=== PATIENT | male | born 1975 | race African-American/Black ===

== ENCOUNTER 2016-08-12 17:56 | Emergency (ER) | payer OTHER ==
[~2016-08-12] VITALS: Wt 70.0 kg
[~2016-08-12 17:56] MED LIST: HC30CR25 TOP; IBUP-1542 PO; LORA-186 PO; METR500T PO; NEOM28OI TP
[2016-08-12] MEDS ORDERED: PERM1LIQ MC (18:40)
--- NOTE | 2016-08-12 19:08 | ERD ---
ER Documentation Chief Complaint Date/Time DATE: 08/12/16 TIME: 19:06 Chief Complaint here for lice clearance. no signs of itching per pt HPI Patient is a 40-year-old male who presents to the ED for "lice clearance." He was sent here from [facility] to make sure that he does not have lice as one of the other members had lice. Denies any symptoms today. Denies itchiness or pain. No complaints today ROS All systems reviewed and are negative except as per history of present illness. Medications Home Meds Active Scripts Permethrin (Permethrin) 1 Gm Liquid, 1 GM MC BID for 7 Days Prov:LENNY ESQUIVEL PA-C 08/12/16 Metronidazole* (Flagyl*) 500 Mg Tablet, 500 MG PO TID for 7 Days, TAB Prov:JOSH KNUTSON PA-C 07/09/16 Loratadine* (Claritin*) 10 Mg Tablet, 10 MG PO DAILY, #30 TAB Prov:JOSH KNUTSON PA-C 07/09/16 Ibuprofen* (Ibuprofen*) 600 Mg Tablet, 600 MG PO Q6H, #30 TAB Prov:JOSH KNUTSON PA-C 07/09/16 Hydrocortisone* Topical (Hydrocortisone* Topical) 2.5%-28.3 Gm Cream..g., 1 APPLIC TOP TID, #1 TUB Applied to rectal area Prov:BEV PATRICIO MD 06/01/16 Neomycin Ellis/Bacitrac Zn/Poly (Triple Antibiotic Ointment) 28 Gm Oint...g., 28 GM TP TID for 7 Days Prov:BEV PATRICIO MD 06/01/16 Allergies Allergies: Coded Allergies: No Known Allergy (Unverified , 06/01/16) PMhx/Soc History of Surgery: No Anesthesia Reaction: No Hx Neurological Disorder: No Hx Respiratory Disorders: No Hx Cardiac Disorders: No Hx Psychiatric Problems: No Hx Miscellaneous Medical Probl: No Hx Alcohol Use: Yes Hx Substance Use: No Hx Tobacco Use: Yes Physical Exam Vitals Vital Signs Date Time Temp Pulse Resp B/P Pulse Ox O2 Delivery O2 Flow Rate FiO2 08/12/16 18:35 985.1 89 20 125/73 98 Physical Exam GENERAL: Well-developed, well-nourished male. Appears in no acute distress. HEAD: Normocephalic, atraumatic. EYES: Pupils are equally reactive bilaterally. EOMs grossly intact. No conjunctival erythema. LUNG: Clear to auscultation bilaterally. No rhonchi, wheezing, rales or coarse breath sounds. HEART: Regular rate and rhythm. No murmurs, rubs or gallops. BACK: No midline tenderness. SKIN: Normal color. Warm and dry. No rashes or lesions. Capillary refill < 2 seconds Procedures/MDM ER COURSE: I kept the patient and/or family informed of laboratory and diagnostic imaging results throughout the emergency room course MEDICAL DECISION MAKING: This is a 40-year-old male who presents with lice clearance. Vital signs were reviewed. Patient is afebrile. Patient is not hypoxic. Patient is nontoxic or ill-appearing. Patient does not have lice today. Low suspicion for necrotizing fasciitis, SJS, toxic epidermal necrolysis, Kawasaki, erythema multiforme, gangrene, scarlet fever, meningococcemia, sepsis, anaphylaxis. DISCHARGE: At this time, patient is stable for discharge and outpatient management with no new complaints during the ER course. Patient was sent home with permethrin. Patient will be discharged home with instructions to recheck for new or worsening symptoms such as fever, nausea, weakness, LOC and to follow up with primary care in the next 1-2 days. Patient was advised to return to the ER for any new or worsening symptoms. Plan was discussed and patient and/or family understands and agrees. Home instructions were given. Patient is a 40-year-old male who presents to the ED for "lice clearance." He was sent here from [facility] to make sure that he does not have lice as one of the other members had lice. Denies any symptoms today. Denies itchiness or pain. No complaints today Departure Diagnosis: Primary Impression: Screening for head lice Condition: Stable Patient Instructions: Head Lice Additional Instructions: Call your primary care doctor TOMORROW for an appointment during the next 1-2 days.See the doctor sooner or return here if your condition worsens before your appointment time. LENNY ESQUIVEL PA-C Aug 12, 2016 19:08
== END 2016-08-12 18:44 | disposition home or self-care (01) ==
LOC: E/R 17:56
DX: Z13.89 Encounter for screening for other disorder (principal); Z87.891 Personal history of nicotine dependence
CPT/HCPCS: 99283

== ENCOUNTER 2016-11-05 03:43 | Emergency (ER) | payer OTHER ==
[~2016-11-05] VITALS: Ht 175.3 cm; Wt 63.6 kg
[~2016-11-05 03:43] MED LIST changes: +PERM1LIQ MC
[2016-11-05 03:52] VITALS: Ht 175.3 cm; Wt 63.6 kg
--- NOTE | 2016-11-05 04:11 | ERA ---
ER Documentation Chief Complaint Date/Time DATE: 11/05/16 TIME: 04:10 Chief Complaint PT WANTS MORE PSYCH MEDS TO OD. HEARING VOICES HPI Is a 32-year-old male wants to overdose because he is hearing voices telling him to kill himself. Denies any fevers or chills. Denies homicidal ideation. Denies any current complaints. ROS All systems reviewed and are negative except as per history of present illness. Medications Home Meds Active Scripts Permethrin (Permethrin) 1 Gm Liquid, 1 GM MC BID for 7 Days Prov:LENNY ESQUIVEL PA-C 08/12/16 Metronidazole* (Flagyl*) 500 Mg Tablet, 500 MG PO TID for 7 Days, TAB Prov:JOSH KNUTSON PA-C 07/09/16 Loratadine* (Claritin*) 10 Mg Tablet, 10 MG PO DAILY, #30 TAB Prov:JOSH KNUTSON PA-C 07/09/16 Ibuprofen* (Ibuprofen*) 600 Mg Tablet, 600 MG PO Q6H, #30 TAB Prov:JOSH KNUTSON PA-C 07/09/16 Hydrocortisone* Topical (Hydrocortisone* Topical) 2.5%-28.3 Gm Cream..g., 1 APPLIC TOP TID, #1 TUB Applied to rectal area Prov:BEV PATRICIO MD 06/01/16 Neomycin Ellis/Bacitrac Zn/Poly (Triple Antibiotic Ointment) 28 Gm Oint...g., 28 GM TP TID for 7 Days Prov:BEV PATRICIO MD 06/01/16 Allergies Allergies: Coded Allergies: No Known Allergy (Unverified , 06/01/16) PMhx/Soc History of Surgery: No Anesthesia Reaction: No Hx Neurological Disorder: No Hx Respiratory Disorders: No Hx Cardiac Disorders: No Hx Psychiatric Problems: No Hx Miscellaneous Medical Probl: No Hx Alcohol Use: Yes Hx Substance Use: No Hx Tobacco Use: Yes Smoking Status: Current every day smoker Physical Exam Vitals Vital Signs Date Time Temp Pulse Resp B/P Pulse Ox O2 Delivery O2 Flow Rate FiO2 11/05/16 03:52 98.4 86 18 136/97 100 Physical Exam Const: [] Head: Atraumatic Eyes: Normal Conjunctiva ENT: Normal External Ears, Nose and Mouth. Neck: Full range of motion..~ No meningismus. Resp: Clear to auscultation bilaterally Cardio: Regular rate and rhythm, no murmurs Abd: Soft, non tender, non distended. Normal bowel sounds Skin: No petechiae or rashes Back: No midline or flank tenderness Ext: No cyanosis, or edema Neur: Awake and alert Psych: Normal Mood and Affect Procedures/MDM Patient's behavioral symptoms have stabilized while in the department. Patient is medically cleared and appropriate for psychiatric evaluation and work up. No e/o neurologic, toxic, infectious, or metabolic cause. Departure Diagnosis: Primary Impression: Suicidal ideation Condition: Stable SHAYNE BURGOS Nov 05, 2016 04:11
[2016-11-05 04:24] LABS: ADD SCAN DIFF NO
[2016-11-05 04:34] LABS: ADD UMIC YES; URINE BILIRUBIN (Dip) NEGATIVE (NEGATIVE); URINE BLOOD (Dip) TRACE (NEGATIVE); URINE COLOR LT. YELLOW (YELLOW); URINE GLUCOSE (Dip) NEGATIVE (NEGATIVE); URINE KETONES (Dip) 15 (NEGATIVE); URINE LEUKOCYTE ESTERASE (Dip) NEGATIVE (NEGATIVE); URINE NITRITE (Dip) NEGATIVE (NEGATIVE); URINE TOTAL PROTEIN (Dip) TRACE (NEGATIVE); URINE UROBILINOGEN (Dip) 0.2 E.U./dL (0.1-1.0)
[2016-11-05 04:35] LABS: BASOPHILS % 0.3 % (0.0-2.0); EOSINOPHILS # 0.1 10^3/ul (0.0-0.5); EOSINOPHILS % 2.1 % (0.0-7.0); HEMATOCRIT 46.5 % (42.0-52.0); HEMOGLOBIN 15.6 g/dl (14.0-18.0); LYMPHOCYTES # 2.5 10^3/ul (0.8-2.9); LYMPHOCYTES % 38.1 % (15.0-51.0); MEAN CORPUSCULAR HEMOGLOBIN 31.8 pg (29.0-33.0); MEAN CORPUSCULAR HGB CONC 33.5 g/dl (32.0-37.0); MEAN CORPUSCULAR VOLUME 94.9 fl (82.0-101.0); MONOCYTE # 0.6 10^3/ul (0.3-0.9); MONOCYTES % 9.3 % (0.0-11.0); NEUTROPHIL # 3.3 10^3/ul (1.6-7.5); NEUTROPHILS % 49.9 % (39.0-77.0); PLATELET COUNT 281 10^3/UL (140-415); WHITE BLOOD COUNT 6.7 10^3/ul (4.8-10.8)
[2016-11-05 04:37] LABS: CHLORIDE 99 mmol/L (97-110)
[2016-11-05 04:38] LABS: POTASSIUM 3.9 mmol/L (3.5-5.1); SODIUM 138 mmol/L (135-144)
[2016-11-05 04:40] LABS: ALANINE AMINOTRANSFERASE 29 IU/L (13-69); ALBUMIN/GLOBULIN RATIO 1.35; ALKALINE PHOSPHATASE 98 IU/L (42-121); ANION GAP 18 (8-16); ASPARTATE AMINO TRANSFERASE 23 IU/L (15-46); BILIRUBIN,INDIRECT 0.7 mg/dl (0-1.1); BILIRUBIN,TOTAL 0.7 mg/dl (0.2-1.3); BLOOD UREA NITROGEN 13 mg/dl (7-20); CALCIUM 9.8 mg/dl (8.4-10.2); CARBON DIOXIDE 25 mmol/L (21-31); CREATININE 0.89 mg/dl (0.61-1.24); GLUCOSE 153 mg/dl (70-220); TOTAL PROTEIN 8.7 g/dl (6.1-8.1)
[2016-11-05 04:52] LABS: URINE RBCS 0-2 /HPF (0)
[2016-11-05 04:53] LABS: BACTERIA,URINE MODERATE; MUCUS,URINE FEW
[2016-11-05 04:53] LABS: ACETAMINOPHEN < 10.0 ug/ml (10.0-30.0); ETHANOL < 10.0 mg/dl; SALICYLATE < 1.0 mg/dl (5.0-30.0)
[2016-11-05 04:54] LABS: BARBITURATES Negative (NEGATIVE); BENZODIAZEPINES Negative (NEGATIVE); CANNABINOIDS Negative (NEGATIVE); COCAINE Negative (NEGATIVE); OPIATES Negative (NEGATIVE)
--- NOTE | 2016-11-05 05:31 | PSY ---
Date/Time of Note Date/Time of Note DATE: 11/05/16 TIME: 05:25 Psychiatric Subjective Eval Consent Pt consented to telemedicine: Yes Subjective Evaluation Patient location: emergency Chief Complaint: PT WANTS MORE PSYCH MEDS TO OD. HEARING VOICES Reason for consult: suicidal History of present illness patient is a 40 yo male homeless with PPH of depression who came to the ER due to feelign suicidal for days, he wants to cut himself, he has attempted in the , he was admitted about 5 months ago, he has been hearing voices telling him to hurt himself and he has been using methamphetamine, he is very paranoid and anxious during the interview, he has been feeling depressed, hopeless and helpless for months due to homelessness. denies any HI Past psychiatric history suicidal attempt in the past Hospitalization: yes Family History denies Medical history Problems Medical Problems: (1) Breast pain Status: Acute (2) Exposure to trichomonas Status: Acute (3) Exposure to trichomonas Status: Acute (4) Pharyngitis Status: Acute (5) Pharyngitis Status: Acute (6) Rectal pain Status: Acute (7) Screening for head lice Status: Acute (8) Suicidal ideation Status: Acute Allergies: Coded Allergies: No Known Allergy (Unverified , 06/01/16) Substance Abuse Substance abuse history: Yes Prior substance abuse treatmen: Yes Social History Marital status: single Level of education: hs Occupation/Alf: hs Psychiatric Objective Eval Review of Systems: Review of Systems: Not Applicable Physical Examination: Physical Examination: Applicable Sleep: Insomnia Appetite: Decreased Energy: Decreased Interest: Decreased Mental Status Examination: Appearance: Disheveled Eye Contact: Good Psychomotor Activity: Slow Behavior: Guarded Speech: Clear AFFECT: Depressed Mood: Depressed, Anxious Though Process: Linear, Loose Thought Content: Delusions, Hallucinations Suicidal: Yes Homicidal: No On 72 hour hold: No Orientation: x2 Cognition: Alert Insight: Impared Judgement: Impared Attention Span: Distractible Laboratory Results Laboratory Tests Test 11/05/16 03:50 11/05/16 04:10 Urine Color LT. YELLOW Urine Clarity CLEAR Urine pH 5.5 Urine Specific [place] 1.020 Urine Ketones 15 Urine Nitrite NEGATIVE Urine Bilirubin NEGATIVE Urine Urobilinogen 0.2 E.U./dL Urine Leukocyte Esterase NEGATIVE Urine Microscopic RBC 0-2/HPF Urine Microscopic WBC 0-2/HPF Urine Bacteria MODERATE Urine Mucus FEW Urine Hemoglobin TRACE Urine Glucose NEGATIVE% Urine Total Protein TRACE Urine Opiates Screen Negative Urine Barbiturates Negative Urine Amphetamines Screen Negative Urine Benzodiazepines Screen Negative Urine Cocaine Screen Negative Urine Cannabinoids Negative White Blood Count 6.710^3/ul Red Blood Count 4.9010^6/ul Hemoglobin 15.6g/dl Hematocrit 46.5% Mean Corpuscular Volume 94.9fl Mean Corpuscular Hemoglobin 31.8pg Mean Corpuscular Hemoglobin Concent 33.5g/dl Red Cell Distribution Width 12.0% Platelet Count 70072^3/UL Mean Platelet Volume 10.0fl Neutrophils % 49.9% Lymphocytes % 38.1% Monocytes % 9.3% Eosinophils % 2.1% Basophils % 0.3% Nucleated Red Blood Cells % 0.0/100WBC Neutrophils # 3.310^3/ul Lymphocytes # 2.510^3/ul Monocytes # 0.610^3/ul Eosinophils # 0.110^3/ul Basophils # 0.010^3/ul Nucleated Red Blood Cells # 0.010^3/ul Sodium Level 138mmol/L Potassium Level 3.9mmol/L Chloride Level 99mmol/L Carbon Dioxide Level 25mmol/L Anion Gap 18 Blood Urea Nitrogen 13mg/dl Creatinine 0.89mg/dl Glucose Level 153mg/dl Calcium Level 9.8mg/dl Total Bilirubin 0.7mg/dl Direct Bilirubin 0.00mg/dl Indirect Bilirubin 0.7mg/dl Aspartate Amino Transf (AST/SGOT) 23IU/L Alanine Aminotransferase (ALT/SGPT) 29IU/L Alkaline Phosphatase 98IU/L Total Protein 8.7g/dl Albumin 5.0g/dl Globulin 3.70g/dl Albumin/Globulin Ratio 1.35 Salicylates Level < 1.0mg/dl Acetaminophen Level < 10.0ug/ml Ethyl Alcohol Level < 10.0mg/dl Assessment and Plan Assessment/Diagnosis [place] I: psychosis nos [place] II: deferred [place] III: as per record [place] IV: homeless [place] V: gaf 25 Recommendation/Plan Follow-up/Disposition Please admit patient on involuntary status due to Danger to self, In my opinion, patient currently MEETS criterion for inpatient care and CANNOT be safely treated at a lower level of care today as evidenced by the following risk factors: Current and Recent Suicidal Ideation Previous suicide attempt and severe self-destructive behavior Intense feelings of hopelessness and lack of future orientation. Significant recent DETERIORATION in function, behavior and thought processes Command hallucinations with violent content Substance ABUSE in conjunction with another psychiatric disorder Non-Compliance with Outpatient Treatment Patient has failed outpatient and requires further inpatient assessment Medication changes require observation unavailable at a lower level of care. [id number] Recommendation: IRMA Conte MD Nov 05, 2016 05:31
[2016-11-05 13:09] VITALS: BP 120/69; PULSE 83; RESP 18; TEMP 98.8
== END 2016-11-05 13:10 ==
LOC: E/R 03:43
DX: R44.0 Auditory hallucinations (principal); R45.851 Suicidal ideations; F17.210 Nicotine dependence, cigarettes, uncomplicated; R40.2142 Coma scale, eyes open, spontaneous, at arrival to emergency department; R40.2252 Coma scale, best verbal response, oriented, at arrival to emergency department; R40.2362 Coma scale, best motor response, obeys commands, at arrival to emergency department
CPT/HCPCS: 36415; 80053; 80306; 80307; 81001; 85025; Z7502; 81003